=== PATIENT | male | born 1965 | race African-American/Black ===

== ENCOUNTER 2024-09-09 10:07 | Inpatient (IN) | payer OTHER ==
[2024-09-06 09:42] LABS: BASOPHILS # (AUTO) 0.1 (0.0-0.1); BASOPHILS % 0.7 % (0.0-1.0); EOSINOPHILS # (AUTO) 0.4 (0.0-0.4); EOSINOPHILS % 3.8 % (0.0-6.0); HEMATOCRIT 34.2 % (38.2-49.6); LYMPHOCYTES # (AUTO) 1.9 (1.0-3.2); LYMPHOCYTES % 17.4 % (18.0-39.1); MEAN CORPUSCULAR HEMOGLOBIN 30.9 pg (28-32); MEAN CORPUSCULAR HGB CONC 32.2 g/dL (31-35); MEAN CORPUSCULAR VOLUME 96.1 fL (81-99); MONOCYTES # (AUTO) 0.8 (0.2-0.8); MONOCYTES % 7.8 % (4.4-11.3); NEUTROPHILS # (AUTO) 7.4 (2.1-6.9); NEUTROPHILS % 69.8 % (38.7-80.0); PLATELET COUNT 190 x10e3/uL (140-360); RED BLOOD COUNT 3.56 x10e6/uL (4.3-5.7); RED CELL DISTRIBUTION WIDTH 11.9 % (11.7-14.4); WHITE BLOOD COUNT 10.66 x10e3/uL (4.8-10.8)
[2024-09-06 10:01] LABS: ALBUMIN 4.4 g/dL (3.5-5.0); ALBUMIN/GLOBULIN RATIO 1.5 (0.8-2.0); ANION GAP 15.9 mmol/L (8-16); BILIRUBIN,TOTAL 0.8 mg/dL (0.2-1.2); CALCIUM 10.1 mg/dL (8.4-10.2); CREATININE, SERUM 1.28 mg/dL (0.72-1.25); POTASSIUM 4.9 mmol/L (3.5-5.1); TOTAL PROTEIN 7.3 g/dL (6.5-8.1)
[~2024-09-09] VITALS: Ht 165.1 cm; Wt 78.9 kg
[~2024-09-09 10:07] MED LIST: ASPIRIN81 MG PO; CARVEDILOL3.125 MG PO; CLOPIDOGREL75 MG PO; CRESTOR40 MG PO; FUROSEMIDE40 MG PO; JANUVIA100 MG PO; JARDIANCE10 MG PO; LOSARTAN POTASS25 MG PO; SPIRONOLACTONE25 MG PO
[2024-09-09] MEDS ORDERED: MIDAZOLAM HCL 2 MG/2 ML VIAL ONE (12:36)
[2024-09-09] MEDS ORDERED: FENTANYL CITRATE/PF 100MCG/2 ML INJ ONE (12:36)
[2024-09-09] MEDS ORDERED: ONDANSETRON HCL INJ 2MG/ML 2ML 2 MG/ML VIAL ONE (12:43)
[2024-09-09] MEDS ORDERED: LIDOCAINE HCL 2% LOCAL INJ 5 ML SDV VIAL INJ ONE (12:43)
[2024-09-09] MEDS ORDERED: SUGAMMADEX SODIUM 200 MG/2 ML VIAL IV ONE (12:43)
[2024-09-09] MEDS ORDERED: DEXAMETHASONE SOD PHOS INJ 4 MG/ML SDV ONE (12:43)
[2024-09-09] MEDS ORDERED: ROCURONIUM BROMIDE 10 MG/ML 5ML VIAL IV ONE (12:43)
[2024-09-09] MEDS ORDERED: ACETAMINOPHEN 1000 MG/100 ML IV ONE (12:43)
[2024-09-09] MEDS ORDERED: SEVOFLURANE INHAL SOLN 250 ML PEN BTL ONE (12:43)
[2024-09-09] MEDS ORDERED: PHENYLEPHRINE HCL 1% 10 MG/ML VIAL ONE (12:43)
[2024-09-09] MEDS ORDERED: PROPOFOL IV EMULSION 10 MG/ML 20 ML VIAL ONE (12:43)
[2024-09-09] MEDS ORDERED: DIPHENHYDRAMINE HCL INJ 50 MG/ML VIAL IM PRN (14:45)
[2024-09-09] MEDS: FENTANYL CITRATE/PF 100MCG/2 ML INJ ONE (14:45)
[2024-09-09] MEDS ORDERED: NALOXONE HCL INJ 0.4 MG/ML AMP IV PRN (14:45)
[2024-09-09] MEDS ORDERED: ONDANSETRON HCL INJ 2MG/ML 2ML 2 MG/ML VIAL IV PRN ×2 (14:45→23:30)
[2024-09-09] MEDS ORDERED: ACETAMINOPHEN 1000 MG/100 ML IV PRN (14:45)
[2024-09-09] MEDS: MORPHINE SULFATE 1 MG/ML 30ML PCA IV PRN (15:12)
[2024-09-09 16:16] VITALS: BP 152/73; PULSE 53; RESP 19; TEMP 98.5; O2SAT 100
[2024-09-09] MEDS ORDERED: CIALIS5 MG (16:33)
[2024-09-09] MEDS ORDERED: BICALUTAMIDE50 MG PO (16:35)
[2024-09-09 17:28] VITALS: PULSE 65; RESP 16; O2SAT 97
[2024-09-09] MEDS: CEFAZOLIN SODIUM 2 GM ONE (17:36)
[2024-09-09] MEDS: LACTATED RINGER'S 1,000 ML ONE (17:37)
[2024-09-09 17:48] VITALS: BP 152/73; PULSE 65; RESP 16; TEMP 98.5; O2SAT 97
[2024-09-09] MEDS: SODIUM CHLORIDE 0.9% 1000ML 1,000 ML IV SCH (18:13)
[2024-09-09 20:35] VITALS: PULSE 80; RESP 18; O2SAT 96
[2024-09-09 22:30] VITALS: BP 112/72; PULSE 82; RESP 18; TEMP 98.5; O2SAT 96
[2024-09-09 22:33] VITALS: BP 112/72; PULSE 82; RESP 18; TEMP 98.5; O2SAT 96
[2024-09-09] MEDS ORDERED: HYDRALAZINE HCL 20 MG/ML VIAL IV PRN (23:45)
[2024-09-09] MEDS: INSULIN LISPRO 100 UNIT/1 ML 3ML VIAL SQ SCH (23:45)
[2024-09-09] MEDS ORDERED: DEXTROSE 50% SYRINGE 50 ML IV PRN (23:45)
[2024-09-10] VITALS (8 sets, daily range): BP systolic 106–123; BP diastolic 56–71; PULSE 57–74; RESP 16–20; TEMP 98–98.6; O2SAT 95–100
[2024-09-10 05:48] LABS: BASOPHILS % 0.3 % (0.0-1.0); EOSINOPHILS % 0.3 % (0.0-6.0); HEMATOCRIT 27.3 % (38.2-49.6); HEMOGLOBIN 8.4 g/dL (14.0-18.0); LYMPHOCYTES # (AUTO) 1.5 (1.0-3.2); LYMPHOCYTES % 18.8 % (18.0-39.1); MEAN CORPUSCULAR HEMOGLOBIN 30.4 pg (28-32); MEAN CORPUSCULAR HGB CONC 30.8 g/dL (31-35); MEAN CORPUSCULAR VOLUME 98.9 fL (81-99); MONOCYTES # (AUTO) 0.8 (0.2-0.8); MONOCYTES % 10.8 % (4.4-11.3); NEUTROPHILS # (AUTO) 5.4 (2.1-6.9); NEUTROPHILS % 69.3 % (38.7-80.0); PLATELET COUNT 171 x10e3/uL (140-360); RED BLOOD COUNT 2.76 x10e6/uL (4.3-5.7); WHITE BLOOD COUNT 7.75 x10e3/uL (4.8-10.8)
[2024-09-10 06:00] LABS: ANION GAP 14.2 mmol/L (8-16); CALCIUM 8.9 mg/dL (8.4-10.2); CREATININE, SERUM 1.43 mg/dL (0.72-1.25); POTASSIUM 4.2 mmol/L (3.5-5.1)
[2024-09-11] VITALS: BP 127/65; PULSE 64; RESP 19; TEMP 97.9; O2SAT 99
[2024-09-11 05:40] VITALS: BP 120/63; PULSE 74; RESP 18; TEMP 98.8; O2SAT 100
[2024-09-11 05:46] LABS: BASOPHILS % 0.4 % (0.0-1.0); EOSINOPHILS # (AUTO) 0.1 (0.0-0.4); EOSINOPHILS % 1.2 % (0.0-6.0); HEMATOCRIT 26.2 % (38.2-49.6); LYMPHOCYTES # (AUTO) 1.5 (1.0-3.2); LYMPHOCYTES % 17.9 % (18.0-39.1); MEAN CORPUSCULAR HEMOGLOBIN 30.2 pg (28-32); MEAN CORPUSCULAR HGB CONC 30.5 g/dL (31-35); MEAN CORPUSCULAR VOLUME 98.9 fL (81-99); MONOCYTES % 12.1 % (4.4-11.3); NEUTROPHILS # (AUTO) 5.7 (2.1-6.9); NEUTROPHILS % 68.3 % (38.7-80.0); PLATELET COUNT 162 x10e3/uL (140-360); RED BLOOD COUNT 2.65 x10e6/uL (4.3-5.7); RED CELL DISTRIBUTION WIDTH 12.1 % (11.7-14.4); WHITE BLOOD COUNT 8.34 x10e3/uL (4.8-10.8)
[2024-09-11 06:14] LABS: CALCIUM 8.8 mg/dL (8.4-10.2); CREATININE, SERUM 1.3 mg/dL (0.72-1.25)
[2024-09-11 08:00] VITALS: BP 121/64; PULSE 71; RESP 21; TEMP 98.7; O2SAT 98
[2024-09-11] MEDS ORDERED: MAGNESIUM HYDROXIDE 30 ML UDC PO PRN (09:00)
[2024-09-11] MEDS: SENNA-S TABLET PO SCH (09:00)
[2024-09-11] MEDS: PREGABALIN 25 MG CAP PO SCH (11:55)
[2024-09-11 16:00] VITALS: BP 127/66; PULSE 82; RESP 21; TEMP 98.8; O2SAT 99
[2024-09-11 20:00] VITALS: BP 140/77; PULSE 80; RESP 18; TEMP 98.2; O2SAT 100
[2024-09-11 20:35] VITALS: PULSE 78; RESP 16; O2SAT 98
[2024-09-11] MEDS: HYDROCODONE/APAP 10MG-325MG TAB PO PRN (22:54)
[2024-09-12] VITALS (8 sets, daily range): BP systolic 125–139; BP diastolic 70–79; PULSE 63–92; RESP 16–22; TEMP 97.9–99.3; O2SAT 94–99
[2024-09-12 05:24] LABS: BASOPHILS % 0.6 % (0.0-1.0); EOSINOPHILS # (AUTO) 0.3 (0.0-0.4); EOSINOPHILS % 4.5 % (0.0-6.0); HEMATOCRIT 22.7 % (38.2-49.6); LYMPHOCYTES # (AUTO) 2.1 (1.0-3.2); LYMPHOCYTES % 31.2 % (18.0-39.1); MEAN CORPUSCULAR HEMOGLOBIN 30.7 pg (28-32); MEAN CORPUSCULAR HGB CONC 31.3 g/dL (31-35); MEAN CORPUSCULAR VOLUME 98.3 fL (81-99); MONOCYTES # (AUTO) 0.8 (0.2-0.8); MONOCYTES % 12.3 % (4.4-11.3); NEUTROPHILS # (AUTO) 3.4 (2.1-6.9); NEUTROPHILS % 51.1 % (38.7-80.0); PLATELET COUNT 170 x10e3/uL (140-360); RED BLOOD COUNT 2.31 x10e6/uL (4.3-5.7); RED CELL DISTRIBUTION WIDTH 11.9 % (11.7-14.4); WHITE BLOOD COUNT 6.73 x10e3/uL (4.8-10.8)
[2024-09-12 05:35] LABS: HEMOGLOBIN 7.1 g/dL (14.0-18.0)
[2024-09-12 05:53] LABS: CREATININE, SERUM 1.13 mg/dL (0.72-1.25)
[2024-09-12] MEDS ORDERED: FUROSEMIDE INJ 10 MG/ML 2 ML VIAL IV PRN (09:15)
[2024-09-12] MEDS: DEXAMETHASONE SOD PHOS 10 MG/1 ML VIAL IV ONE (10:57)
[2024-09-12] MEDS: ACETAMINOPHEN 325 MG TAB PO STA (10:59)
[2024-09-12] MEDS: SODIUM CHLORIDE 0.9% 250ML 250 ML IV ONE (11:00)
[2024-09-13] VITALS (9 sets, daily range): BP systolic 129–136; BP diastolic 68–77; PULSE 56–76; RESP 16–18; TEMP 97.6–98.4; O2SAT 98–100
[2024-09-13] MEDS: Morphine 4mg INJECTION 4 MG/ML INJ IV PRN (00:43)
[2024-09-13 05:39] LABS: BASOPHILS % 0.4 % (0.0-1.0); EOSINOPHILS # (AUTO) 0.1 (0.0-0.4); HEMATOCRIT 26.8 % (38.2-49.6); HEMOGLOBIN 8.7 g/dL (14.0-18.0); LYMPHOCYTES # (AUTO) 1.5 (1.0-3.2); LYMPHOCYTES % 18.3 % (18.0-39.1); MEAN CORPUSCULAR HEMOGLOBIN 30.5 pg (28-32); MEAN CORPUSCULAR HGB CONC 32.5 g/dL (31-35); MONOCYTES # (AUTO) 0.9 (0.2-0.8); MONOCYTES % 11.5 % (4.4-11.3); NEUTROPHILS # (AUTO) 5.6 (2.1-6.9); NEUTROPHILS % 68.6 % (38.7-80.0); PLATELET COUNT 167 x10e3/uL (140-360); RED BLOOD COUNT 2.85 x10e6/uL (4.3-5.7); RED CELL DISTRIBUTION WIDTH 11.9 % (11.7-14.4); WHITE BLOOD COUNT 8.19 x10e3/uL (4.8-10.8)
[2024-09-13 06:13] LABS: CALCIUM 8.9 mg/dL (8.4-10.2); CREATININE, SERUM 1.09 mg/dL (0.72-1.25)
[2024-09-13] MEDS: SODIUM CHLORIDE 0.9% 250ML 250 ML ONE ×2 (09:35)
[2024-09-13] MEDS ORDERED: ONDANSETRON HCL 4 MG ORAL DISINTEGRATING TAB PO PRN (14:15)
[2024-09-14] VITALS (8 sets, daily range): BP systolic 103–152; BP diastolic 71–80; PULSE 64–86; RESP 16–21; TEMP 97.4–99.1; O2SAT 97–100
[2024-09-14 09:10] LABS: BASOPHILS # (AUTO) 0.1 (0.0-0.1); BASOPHILS % 0.7 % (0.0-1.0); EOSINOPHILS # (AUTO) 0.5 (0.0-0.4); EOSINOPHILS % 4.6 % (0.0-6.0); HEMATOCRIT 32.3 % (38.2-49.6); HEMOGLOBIN 10.3 g/dL (14.0-18.0); INR 0.87; LYMPHOCYTES # (AUTO) 2.1 (1.0-3.2); LYMPHOCYTES % 21.8 % (18.0-39.1); MEAN CORPUSCULAR HEMOGLOBIN 30.5 pg (28-32); MEAN CORPUSCULAR HGB CONC 31.9 g/dL (31-35); MEAN CORPUSCULAR VOLUME 95.6 fL (81-99); MONOCYTES # (AUTO) 0.9 (0.2-0.8); MONOCYTES % 9.7 % (4.4-11.3); NEUTROPHILS # (AUTO) 6.1 (2.1-6.9); NEUTROPHILS % 62.7 % (38.7-80.0); PLATELET COUNT 205 x10e3/uL (140-360); PROTHROMBIN TIME 12.3 seconds (11.9-14.5); RED BLOOD COUNT 3.38 x10e6/uL (4.3-5.7); RED CELL DISTRIBUTION WIDTH 12.2 % (11.7-14.4); WHITE BLOOD COUNT 9.72 x10e3/uL (4.8-10.8)
[2024-09-14 09:11] LABS: PARTIAL THROMBOPLASTIN TIME 28.1 seconds (23.8-35.5)
[2024-09-14 09:18] LABS: ALBUMIN 3.5 g/dL (3.5-5.0); ALBUMIN/GLOBULIN RATIO 0.9 (0.8-2.0); CALCIUM 9.6 mg/dL (8.4-10.2); CREATININE, SERUM 1.22 mg/dL (0.72-1.25); TOTAL PROTEIN 7.3 g/dL (6.5-8.1)
[2024-09-14] MEDS: SITAGLIPTIN 100 MG TAB PO SCH (12:00)
[2024-09-14] MEDS: EMPAGLIFLOZIN 10 MG TABLET PO SCH (12:00)
[2024-09-14] MEDS: INSULIN GLARGINE 100 UNITS/ML VIAL SQ ONE (13:19)
[2024-09-14] MEDS: SODIUM CHLORIDE 0.9% 250ML 250 ML ONE (13:59)
[2024-09-15] VITALS (8 sets, daily range): BP systolic 117–141; BP diastolic 68–80; PULSE 67–97; RESP 16–21; TEMP 97.9–99.2; O2SAT 94–100
[2024-09-16] VITALS (9 sets, daily range): BP systolic 120–155; BP diastolic 67–85; PULSE 70–98; RESP 16–22; TEMP 97.7–99.4; O2SAT 95–100
[2024-09-16 05:24] LABS: BASOPHILS % 0.4 % (0.0-1.0); EOSINOPHILS # (AUTO) 0.3 (0.0-0.4); EOSINOPHILS % 4.1 % (0.0-6.0); HEMATOCRIT 30.6 % (38.2-49.6); HEMOGLOBIN 9.5 g/dL (14.0-18.0); LYMPHOCYTES # (AUTO) 1.8 (1.0-3.2); LYMPHOCYTES % 21.9 % (18.0-39.1); MEAN CORPUSCULAR HEMOGLOBIN 30.4 pg (28-32); MEAN CORPUSCULAR VOLUME 97.8 fL (81-99); MONOCYTES # (AUTO) 1.1 (0.2-0.8); MONOCYTES % 13.4 % (4.4-11.3); NEUTROPHILS # (AUTO) 4.8 (2.1-6.9); NEUTROPHILS % 59.5 % (38.7-80.0); PLATELET COUNT 209 x10e3/uL (140-360); RED BLOOD COUNT 3.13 x10e6/uL (4.3-5.7); RED CELL DISTRIBUTION WIDTH 12.2 % (11.7-14.4); WHITE BLOOD COUNT 8.11 x10e3/uL (4.8-10.8)
[2024-09-16 05:46] LABS: ANION GAP 13.9 mmol/L (8-16); CALCIUM 9.6 mg/dL (8.4-10.2); CREATININE, SERUM 1.24 mg/dL (0.72-1.25); POTASSIUM 3.9 mmol/L (3.5-5.1)
[2024-09-17] VITALS (10 sets, daily range): BP systolic 108–156; BP diastolic 68–87; PULSE 75–94; RESP 16–23; TEMP 97.7–98.5; O2SAT 93–100
[2024-09-17 05:38] LABS: BASOPHILS # (AUTO) 0.1 (0.0-0.1); BASOPHILS % 0.8 % (0.0-1.0); EOSINOPHILS # (AUTO) 0.4 (0.0-0.4); EOSINOPHILS % 5.1 % (0.0-6.0); HEMOGLOBIN 8.5 g/dL (14.0-18.0); LYMPHOCYTES # (AUTO) 1.5 (1.0-3.2); LYMPHOCYTES % 19.5 % (18.0-39.1); MEAN CORPUSCULAR HEMOGLOBIN 30.5 pg (28-32); MEAN CORPUSCULAR HGB CONC 31.5 g/dL (31-35); MEAN CORPUSCULAR VOLUME 96.8 fL (81-99); MONOCYTES # (AUTO) 0.9 (0.2-0.8); MONOCYTES % 12.6 % (4.4-11.3); NEUTROPHILS # (AUTO) 4.5 (2.1-6.9); NEUTROPHILS % 60.9 % (38.7-80.0); PLATELET COUNT 207 x10e3/uL (140-360); RED BLOOD COUNT 2.79 x10e6/uL (4.3-5.7); WHITE BLOOD COUNT 7.45 x10e3/uL (4.8-10.8)
[2024-09-17 06:12] LABS: ANION GAP 9.4 mmol/L (8-16); CREATININE, SERUM 1.21 mg/dL (0.72-1.25); POTASSIUM 4.4 mmol/L (3.5-5.1)
[2024-09-17 06:40] LABS: CALCIUM 9.4 mg/dL (8.4-10.2)
[2024-09-17] MEDS: BICALUTAMIDE 50 MG TABLET PO SCH (10:17)
[2024-09-18] VITALS: BP 127/79; PULSE 75; RESP 18; TEMP 100; O2SAT 98
[2024-09-18 04:00] VITALS: BP 118/70; PULSE 65; RESP 19; TEMP 97.7; O2SAT 96
[2024-09-18 05:43] LABS: BASOPHILS # (AUTO) 0.1 (0.0-0.1); BASOPHILS % 0.6 % (0.0-1.0); EOSINOPHILS # (AUTO) 0.4 (0.0-0.4); EOSINOPHILS % 5.2 % (0.0-6.0); LYMPHOCYTES # (AUTO) 1.6 (1.0-3.2); LYMPHOCYTES % 19.9 % (18.0-39.1); MEAN CORPUSCULAR HEMOGLOBIN 29.4 pg (28-32); MONOCYTES # (AUTO) 0.9 (0.2-0.8); MONOCYTES % 10.9 % (4.4-11.3); NEUTROPHILS % 62.5 % (38.7-80.0); PLATELET COUNT 246 x10e3/uL (140-360); RED BLOOD COUNT 3.06 x10e6/uL (4.3-5.7); WHITE BLOOD COUNT 8.04 x10e3/uL (4.8-10.8)
[2024-09-18 09:05] VITALS: BP 118/70; PULSE 65; RESP 19; TEMP 97.7; O2SAT 96
[2024-09-18 11:47] VITALS: BP 128/78; PULSE 66; RESP 18; TEMP 98.6; O2SAT 95
[2024-09-18 14:50] VITALS: PULSE 68; RESP 18; O2SAT 95
== END 2024-09-18 16:04 | disposition home or self-care (01) | DRG 715 ==
LOC: OR 10:07 → PACU V 14:27 → MED/SURG 15:48
PROVIDERS: ADMIT Internal Medicine; ATTEND Internal Medicine
PROC: 0T9B70Z Drainage of Bladder with Drainage Device, Via Natural or Artificial Opening (ICD-10-PCS; 2024-09-09)
PROC: 0TJB8ZZ Inspection of Bladder, Via Natural or Artificial Opening Endoscopic (ICD-10-PCS; 2024-09-09)
PROC: 07BC0ZX Excision of Pelvis Lymphatic, Open Approach, Diagnostic (ICD-10-PCS; 2024-09-09 13:00)
PROC: 30233N1 Transfusion of Nonautologous Red Blood Cells into Peripheral Vein, Percutaneous Approach (ICD-10-PCS; principal; 2024-09-12)
DX: C61 Malignant neoplasm of prostate (principal); D62 Acute posthemorrhagic anemia; E11.9 Type 2 diabetes mellitus without complications; I10 Essential (primary) hypertension; I25.10 Atherosclerotic heart disease of native coronary artery without angina pectoris; N40.0 Benign prostatic hyperplasia without lower urinary tract symptoms; R31.9 Hematuria, unspecified; E78.5 Hyperlipidemia, unspecified; Z79.84 Long term (current) use of oral hypoglycemic drugs; Z87.440 Personal history of urinary (tract) infections; E66.9 Obesity, unspecified; Z68.29 Body mass index [BMI] 29.0-29.9, adult
CPT/HCPCS: 36415; 71046; 80048; 80053; 82948; 85025; 85610; 85730; 86850; 86900; 86920; 88304; 88307; 93005; 94799; 99252; J0690; J1100; J1815; J2003; J2250; J2270; J2371; J2405; J2470; J7030; J7050; P9016

== ENCOUNTER 2025-01-24 08:26 | Inpatient (IN) | payer OTHER ==
[2025-01-23 12:14] LABS: BASOPHILS # (AUTO) 0.1 (0.0-0.1); BASOPHILS % 1.1 % (0.0-1.0); EOSINOPHILS # (AUTO) 0.3 (0.0-0.4); EOSINOPHILS % 4.1 % (0.0-6.0); HEMATOCRIT 32.7 % (38.2-49.6); HEMOGLOBIN 10.8 g/dL (14.0-18.0); LYMPHOCYTES # (AUTO) 1.6 (1.0-3.2); LYMPHOCYTES % 21.7 % (18.0-39.1); MEAN CORPUSCULAR HEMOGLOBIN 30.2 pg (28-32); MEAN CORPUSCULAR VOLUME 91.3 fL (81-99); MONOCYTES # (AUTO) 0.5 (0.2-0.8); MONOCYTES % 7.3 % (4.4-11.3); NEUTROPHILS # (AUTO) 4.7 (2.1-6.9); NEUTROPHILS % 65.4 % (38.7-80.0); PLATELET COUNT 215 x10e3/uL (140-360); RED BLOOD COUNT 3.58 x10e6/uL (4.3-5.7); RED CELL DISTRIBUTION WIDTH 12.4 % (11.7-14.4); WHITE BLOOD COUNT 7.13 x10e3/uL (4.8-10.8)
[2025-01-23 13:14] LABS: CALCIUM 10.3 mg/dL (8.4-10.2); CREATININE, SERUM 1.34 mg/dL (0.72-1.25)
[~2025-01-24] VITALS: Ht 165.1 cm; Wt 80.7 kg
[~2025-01-24 08:26] MED LIST changes: +BICALUTAMIDE50 MG PO; +CIALIS5 MG PO
[2025-01-24] MEDS ORDERED: PROPOFOL IV EMULSION 10 MG/ML 20 ML VIAL ONE (09:40)
[2025-01-24] MEDS ORDERED: SEVOFLURANE INHAL SOLN 250 ML PEN BTL ONE (09:40)
[2025-01-24] MEDS ORDERED: ACETAMINOPHEN 1000 MG/100 ML 100 ML IV ONE (09:40)
[2025-01-24] MEDS ORDERED: ONDANSETRON HCL INJ 2MG/ML 2ML 2 MG/ML VIAL ONE (09:41)
[2025-01-24] MEDS ORDERED: ROCURONIUM BROMIDE 1 ML IV ONE (09:41)
[2025-01-24] MEDS ORDERED: SUCCINYLCHOLINE CHLORIDE 20 MG/ML 10ML VIAL ONE (09:41)
[2025-01-24] MEDS ORDERED: LIDOCAINE HCL 2% LOCAL INJ 5 ML SDV VIAL INJ ONE (09:41)
[2025-01-24] MEDS ORDERED: DEXAMETHASONE SOD PHOS INJ 4 MG/ML SDV ONE (09:41)
[2025-01-24] MEDS ORDERED: SUGAMMADEX SODIUM 200 MG/2 ML VIAL IV ONE ×2 (09:45→13:20)
[2025-01-24] MEDS: CEFTRIAXONE 1 GM VIAL ONE (09:57)
[2025-01-24] MEDS: GENTAMICIN 80MG/NS 100 ML 200 ML IV ONE (09:57)
[2025-01-24] MEDS ORDERED: EPHEDRINE SULFATE INJ 50 MG/ML VIAL ONE (10:01)
[2025-01-24] MEDS ORDERED: FENTANYL CITRATE/PF 100MCG/2 ML INJ ONE (11:28)
[2025-01-24] MEDS ORDERED: DIPHENHYDRAMINE HCL INJ 50 MG/ML VIAL IM PRN (12:15)
[2025-01-24] MEDS ORDERED: ACETAMINOPHEN 1000 MG/100 ML IV PRN (12:15)
[2025-01-24 13:42] LABS: BASOPHILS # (AUTO) 0.1 (0.0-0.1); BASOPHILS % 0.6 % (0.0-1.0); EOSINOPHILS # (AUTO) 0.3 (0.0-0.4); EOSINOPHILS % 3.2 % (0.0-6.0); HEMATOCRIT 27.4 % (38.2-49.6); HEMOGLOBIN 8.8 g/dL (14.0-18.0); LYMPHOCYTES # (AUTO) 1.7 (1.0-3.2); MEAN CORPUSCULAR HGB CONC 32.1 g/dL (31-35); MEAN CORPUSCULAR VOLUME 93.5 fL (81-99); MONOCYTES # (AUTO) 0.4 (0.2-0.8); MONOCYTES % 4.2 % (4.4-11.3); NEUTROPHILS # (AUTO) 6.5 (2.1-6.9); NEUTROPHILS % 72.6 % (38.7-80.0); PLATELET COUNT 184 x10e3/uL (140-360); RED BLOOD COUNT 2.93 x10e6/uL (4.3-5.7); RED CELL DISTRIBUTION WIDTH 12.3 % (11.7-14.4)
[2025-01-24] MEDS: FENTANYL CITRATE/PF 100MCG/2 ML INJ IV ONE (14:05)
[2025-01-24] MEDS: PHENAZOPYRIDINE HCL 100 MG TAB PO ONE (14:10)
[2025-01-24 14:26] LABS: ANION GAP 9.9 mmol/L (8-16); CREATININE, SERUM 0.84 mg/dL (0.72-1.25)
[2025-01-24 14:27] LABS: CALCIUM 7.5 mg/dL (8.4-10.2); POTASSIUM 3.9 mmol/L (3.5-5.1)
[2025-01-24] MEDS: ACETAMINOPHEN/CODEINE 300MG - 30MG TAB PO ONE (14:34)
[2025-01-24] MEDS: SENNA-S TABLET PO SCH (18:02)
[2025-01-24 18:11] VITALS: BP 151/84; PULSE 55; RESP 12; TEMP 97.6; O2SAT 98
[2025-01-24] MEDS: SODIUM CHLORIDE 0.9% 0 ML ONE (18:17)
[2025-01-24] MEDS: SODIUM CHLORIDE 0.9% 1000ML 1,000 ML ONE (18:17)
[2025-01-24] MEDS: ACETAMINOPHEN/CODEINE 300MG - 30MG TAB ONE (18:18)
[2025-01-24] MEDS: PHENAZOPYRIDINE HCL 100 MG TAB ONE (18:18)
[2025-01-24] MEDS: FENTANYL CITRATE/PF 100MCG/2 ML INJ ONE (18:18)
[2025-01-24 21:02] VITALS: BP 143/64; PULSE 61; RESP 18; TEMP 97.8; O2SAT 97
[2025-01-24] MEDS: ACETAMINOPHEN/CODEINE 300MG - 30MG TAB PO PRN (21:30)
[2025-01-24] MEDS: SODIUM CHLORIDE 0.9% 1000ML 1,000 ML IV SCH (21:30)
[2025-01-25] VITALS (9 sets, daily range): BP systolic 119–164; BP diastolic 64–73; PULSE 60–76; RESP 16–18; TEMP 97.5–98.9; O2SAT 95–99
[2025-01-25] MEDS: PHENAZOPYRIDINE HCL 100 MG TAB PO PRN (05:35)
[2025-01-25 06:33] LABS: BASOPHILS % 0.4 % (0.0-1.0); EOSINOPHILS # (AUTO) 0.1 (0.0-0.4); EOSINOPHILS % 1.3 % (0.0-6.0); HEMATOCRIT 27.9 % (38.2-49.6); HEMOGLOBIN 9.1 g/dL (14.0-18.0); LYMPHOCYTES # (AUTO) 1.6 (1.0-3.2); LYMPHOCYTES % 14.6 % (18.0-39.1); MEAN CORPUSCULAR HEMOGLOBIN 30.3 pg (28-32); MEAN CORPUSCULAR HGB CONC 32.6 g/dL (31-35); MONOCYTES # (AUTO) 0.9 (0.2-0.8); MONOCYTES % 8.1 % (4.4-11.3); NEUTROPHILS % 75.1 % (38.7-80.0); PLATELET COUNT 194 x10e3/uL (140-360); RED CELL DISTRIBUTION WIDTH 12.4 % (11.7-14.4); WHITE BLOOD COUNT 10.67 x10e3/uL (4.8-10.8)
[2025-01-25 07:05] LABS: ANION GAP 11.7 mmol/L (8-16); CALCIUM 8.2 mg/dL (8.4-10.2); CREATININE, SERUM 1.06 mg/dL (0.72-1.25); POTASSIUM 4.7 mmol/L (3.5-5.1)
[2025-01-26] VITALS (8 sets, daily range): BP systolic 121–146; BP diastolic 59–76; PULSE 70–78; RESP 17–18; TEMP 98–98.7; O2SAT 96–99
[2025-01-26 05:08] LABS: BASOPHILS # (AUTO) 0.1 (0.0-0.1); BASOPHILS % 0.6 % (0.0-1.0); EOSINOPHILS # (AUTO) 0.3 (0.0-0.4); EOSINOPHILS % 2.8 % (0.0-6.0); HEMATOCRIT 25.1 % (38.2-49.6); HEMOGLOBIN 8.3 g/dL (14.0-18.0); LYMPHOCYTES # (AUTO) 1.7 (1.0-3.2); MEAN CORPUSCULAR HEMOGLOBIN 30.6 pg (28-32); MEAN CORPUSCULAR HGB CONC 33.1 g/dL (31-35); MEAN CORPUSCULAR VOLUME 92.6 fL (81-99); MONOCYTES # (AUTO) 0.8 (0.2-0.8); MONOCYTES % 9.2 % (4.4-11.3); NEUTROPHILS # (AUTO) 6.1 (2.1-6.9); NEUTROPHILS % 68.1 % (38.7-80.0); PLATELET COUNT 170 x10e3/uL (140-360); RED BLOOD COUNT 2.71 x10e6/uL (4.3-5.7); RED CELL DISTRIBUTION WIDTH 12.5 % (11.7-14.4); WHITE BLOOD COUNT 9.01 x10e3/uL (4.8-10.8)
[2025-01-26 05:40] LABS: ANION GAP 11.3 mmol/L (8-16); CALCIUM 8.7 mg/dL (8.4-10.2); CREATININE, SERUM 1.15 mg/dL (0.72-1.25); POTASSIUM 4.3 mmol/L (3.5-5.1)
[2025-01-26] MEDS: CRESTOR 10MG PO SCH (21:32)
[2025-01-27] VITALS (9 sets, daily range): BP systolic 146–169; BP diastolic 79–87; PULSE 61–79; RESP 16–18; TEMP 97.7–98.8; O2SAT 96–100
[2025-01-27 05:00] LABS: BASOPHILS # (AUTO) 0.1 (0.0-0.1); BASOPHILS % 0.8 % (0.0-1.0); EOSINOPHILS # (AUTO) 0.4 (0.0-0.4); EOSINOPHILS % 4.4 % (0.0-6.0); HEMATOCRIT 25.2 % (38.2-49.6); HEMOGLOBIN 8.3 g/dL (14.0-18.0); LYMPHOCYTES # (AUTO) 1.9 (1.0-3.2); LYMPHOCYTES % 23.6 % (18.0-39.1); MEAN CORPUSCULAR HEMOGLOBIN 30.4 pg (28-32); MEAN CORPUSCULAR HGB CONC 32.9 g/dL (31-35); MEAN CORPUSCULAR VOLUME 92.3 fL (81-99); MONOCYTES # (AUTO) 0.8 (0.2-0.8); MONOCYTES % 10.3 % (4.4-11.3); NEUTROPHILS # (AUTO) 4.8 (2.1-6.9); NEUTROPHILS % 60.5 % (38.7-80.0); PLATELET COUNT 170 x10e3/uL (140-360); RED BLOOD COUNT 2.73 x10e6/uL (4.3-5.7); RED CELL DISTRIBUTION WIDTH 12.5 % (11.7-14.4); WHITE BLOOD COUNT 7.94 x10e3/uL (4.8-10.8)
[2025-01-27 05:37] LABS: ANION GAP 11.9 mmol/L (8-16); CALCIUM 9.1 mg/dL (8.4-10.2); CREATININE, SERUM 1.02 mg/dL (0.72-1.25); POTASSIUM 3.9 mmol/L (3.5-5.1)
[2025-01-27] MEDS: CARVEDILOL 3.125 MG TAB PO SCH (08:53)
[2025-01-27] MEDS: SITAGLIPTIN 100 MG TAB PO SCH (08:54)
[2025-01-27] MEDS: EMPAGLIFLOZIN 10 MG TABLET PO SCH (08:54)
[2025-01-28 04:00] VITALS: BP 134/81; PULSE 65; RESP 18; TEMP 98.4; O2SAT 100
[2025-01-28 05:37] LABS: BASOPHILS % 0.4 % (0.0-1.0); EOSINOPHILS # (AUTO) 0.3 (0.0-0.4); HEMOGLOBIN 8.4 g/dL (14.0-18.0); LYMPHOCYTES # (AUTO) 1.4 (1.0-3.2); LYMPHOCYTES % 13.9 % (18.0-39.1); MEAN CORPUSCULAR HEMOGLOBIN 30.3 pg (28-32); MEAN CORPUSCULAR HGB CONC 33.6 g/dL (31-35); MEAN CORPUSCULAR VOLUME 90.3 fL (81-99); MONOCYTES # (AUTO) 0.9 (0.2-0.8); MONOCYTES % 9.5 % (4.4-11.3); NEUTROPHILS # (AUTO) 7.2 (2.1-6.9); NEUTROPHILS % 72.6 % (38.7-80.0); PLATELET COUNT 181 x10e3/uL (140-360); RED BLOOD COUNT 2.77 x10e6/uL (4.3-5.7); RED CELL DISTRIBUTION WIDTH 12.1 % (11.7-14.4); WHITE BLOOD COUNT 9.93 x10e3/uL (4.8-10.8)
[2025-01-28 06:12] LABS: ANION GAP 13.8 mmol/L (8-16); CALCIUM 9.1 mg/dL (8.4-10.2); CREATININE, SERUM 1.49 mg/dL (0.72-1.25); POTASSIUM 3.8 mmol/L (3.5-5.1)
[2025-01-28 06:24] VITALS: PULSE 74; RESP 20; O2SAT 98
[2025-01-28 08:00] VITALS: BP 178/87; PULSE 64; RESP 18; TEMP 98.1; O2SAT 100
[2025-01-28 09:06] VITALS: BP 166/81
[2025-01-28 10:15] VITALS: BP 166/81; PULSE 64; RESP 18; TEMP 98.1; O2SAT 100
[2025-01-28 12:23] VITALS: BP 124/67; PULSE 74; RESP 18; TEMP 98.3; O2SAT 100
== END 2025-01-28 15:35 | disposition home or self-care (01) | DRG 713 ==
LOC: OR 08:26 → PACU V 12:04 → MED/SURG 15:02
PROVIDERS: ADMIT Internal Medicine; ATTEND Internal Medicine
PROC: 0T7D8ZZ Dilation of Urethra, Via Natural or Artificial Opening Endoscopic (ICD-10-PCS; 2025-01-24)
PROC: BT161ZZ Fluoroscopy of Right Ureter using Low Osmolar Contrast (ICD-10-PCS; 2025-01-24)
PROC: BT171ZZ Fluoroscopy of Left Ureter using Low Osmolar Contrast (ICD-10-PCS; 2025-01-24)
PROC: 0VB08ZZ Excision of Prostate, Via Natural or Artificial Opening Endoscopic (ICD-10-PCS; principal; 2025-01-24 11:48)
DX: C61 Malignant neoplasm of prostate (principal); D62 Acute posthemorrhagic anemia; N40.1 Benign prostatic hyperplasia with lower urinary tract symptoms; N13.8 Other obstructive and reflux uropathy; E11.65 Type 2 diabetes mellitus with hyperglycemia; E11.42 Type 2 diabetes mellitus with diabetic polyneuropathy; I10 Essential (primary) hypertension; E78.5 Hyperlipidemia, unspecified; R31.0 Gross hematuria; N35.912 Unspecified bulbous urethral stricture, male; E66.9 Obesity, unspecified; Z68.29 Body mass index [BMI] 29.0-29.9, adult; Z79.82 Long term (current) use of aspirin; Z79.84 Long term (current) use of oral hypoglycemic drugs; Z79.890 Hormone replacement therapy
CPT/HCPCS: 36415; 74420; 80048; 82948; 83735; 85025; 88305; 88342; 93005; 94799; C1758; J0330; J0696; J1100; J1200; J1580; J2003; J2405; J7030; J7050

== ENCOUNTER 2025-01-29 15:23 | Emergency (ER) | payer OTHER ==
[~2025-01-29] VITALS: Ht 165.1 cm; Wt 80.7 kg
[2025-01-29 15:42] VITALS: PULSE 78; RESP 18; TEMP 98.1; O2SAT 100
== END 2025-01-29 17:00 | disposition home or self-care (01) ==
LOC: ER 15:50
DX: Z46.6 Encounter for fitting and adjustment of urinary device (principal); I10 Essential (primary) hypertension; E11.65 Type 2 diabetes mellitus with hyperglycemia; I50.9 Heart failure, unspecified; I25.10 Atherosclerotic heart disease of native coronary artery without angina pectoris
CPT/HCPCS: 99282